=== PATIENT | female | born 1950 | race Caucasian/White ===

== ENCOUNTER 2018-06-10 12:30 | Outpatient (CLI) | payer OTHER ==
--- NOTE | 2018-06-23 16:05 | Mammography Report ---
Reason: SCREENING Procedure Date: 06/10/2018 Accession Number: [id number] / [id number] Procedure: MGN - Screening Mammo Dig Bilat CPT Code: FULL RESULT: EXAM: Screening Mammo Dig Bilat DATE: 06/10/2018 1:19 PM CLINICAL HISTORY: 67-year-old female presents for screening mammography. TECHNIQUE: Bilateral CC and MLO views were obtained. COMPARISON: No images for comparison available at the time of interpretation. FINDINGS: The breasts demonstrate heterogeneously dense fibroglandular parenchyma bilaterally. Typically benign coarse calcifications are seen in the right breast. There are typically benign vascular calcifications in both breasts. No suspicious masses, clustered microcalcifications, or regions of architectural distortion are identified. IMPRESSION: Benign findings RECOMMENDATION: Routine annual screening unless otherwise clinically indicated. BIRADS CATEGORY 2: Benign findings STANDARD QUALIFYING STATEMENTS: 1. This examination was reviewed without the aid of Computer-Aided Detection (CAD). 2. A negative or benign imaging report should not delay biopsy if clinically suspicious findings are present. Consider surgical consultation if warrented. More than 5% of cancers are not identified by imaging. 3. Dense breasts may obscure an underlying neoplasm.
== END 2018-06-10 12:31 | disposition home or self-care (01) ==
LOC: DI.N 12:30
DX: Z12.31 Encounter for screening mammogram for malignant neoplasm of breast (principal)
CPT/HCPCS: 77067

== ENCOUNTER 2019-01-12 14:38 | Outpatient (CLI) | payer OTHER ==
--- NOTE | 2019-01-12 15:58 | XRAY Report ---
Reason: PULMONARY ARTERY ANOLAMY,ELEV BP READING W/O HTN D Procedure Date: 01/12/2019 Accession Number: [id number] / [id number] Procedure: XR - Chest 2 View X-Ray CPT Code: 64784 FULL RESULT: EXAM: CHEST RADIOGRAPHY. EXAM DATE: 01/12/2019 03:05 PM. 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 COMPARISON: None. TECHNIQUE: 2 views. FINDINGS: Lungs/Pleura: No focal opacities evident. No pleural effusion. No pneumothorax. Normal volumes. Mediastinum: Heart and mediastinal contours are unremarkable. Other: None. IMPRESSION: Normal 2-view chest radiography. RADIA
== END 2019-01-12 14:39 | disposition home or self-care (01) ==
LOC: DI 14:38
PROVIDERS: ATTEND Family Medicine
DX: Q25.79 Other congenital malformations of pulmonary artery (principal); R03.0 Elevated blood-pressure reading, without diagnosis of hypertension
CPT/HCPCS: 71046

== ENCOUNTER 2019-01-13 07:39 | Outpatient (CLI) | payer OTHER ==
[2019-01-13 08:02] LABS: BASOPHILS % (AUTO) 0.5 %; EOSINOPHILS # (AUTO) 0.2 10^3/uL (0.0-0.7); EOSINOPHILS % (AUTO) 3.1 %; HGB - HEMOGLOBIN 14.2 g/dL (12.0-16.0); LYMPHOCYTES # (AUTO) 1.9 10^3/uL (1.5-3.5); LYMPHOCYTES % (AUTO) 38.5 %; MEAN CORPUSCULAR HEMOGLOBIN 30.5 pg (27.0-31.0); MEAN CORPUSCULAR HGB CONC 33.2 g/dL (32.0-36.0); MEAN CORPUSCULAR VOLUME 91.9 fL (81.0-99.0); MEAN PLATELET VOLUME 7.7 fL (7.9-10.8); MONOCYTES # (AUTO) 0.3 10^3/uL (0.0-1.0); MONOCYTES % (AUTO) 5.3 %; NEUTROPHILS # (AUTO) 2.7 10^3/uL (1.5-6.6); NEUTROPHILS % (AUTO) 52.6 %; PLT - PLATELET COUNT 244 10^3/uL (130-450); RED BLOOD COUNT 4.64 10^6/uL (4.20-5.40); RED CELL DISTRIBUTION WIDTH 13.2 % (12.0-15.0)
[2019-01-13 08:05] LABS: ALBUMIN/GLOBULIN RATIO 1.5 (1.0-2.2); CALCIUM 9.7 mg/dL (8.5-10.3); CREATININE 0.5 mg/dL (0.4-1.0); TOTAL PROTEIN 6.7 g/dL (6.7-8.2)
[2019-01-13 09:45] LABS: THYROID STIMULATING HORMONE 6.72 uIU/mL (0.34-5.60)
[2019-01-13 09:46] LABS: FREE T4 (FREE THYROXINE) 0.68 ng/dL (0.58-1.64)
== END 2019-01-13 07:40 | disposition home or self-care (01) ==
LOC: LAB 07:39
PROVIDERS: ATTEND Family Medicine
DX: Q25.79 Other congenital malformations of pulmonary artery (principal); R03.0 Elevated blood-pressure reading, without diagnosis of hypertension
CPT/HCPCS: 36415; 80053; 84439; 84443; 84481; 85025

== ENCOUNTER 2019-01-16 11:07 | Outpatient (CLI) | payer OTHER | END 2019-01-16 11:08 | disposition home or self-care (01) | LOC: DI 11:07 | PROVIDERS: ATTEND Family Medicine | DX: R03.0 Elevated blood-pressure reading, without diagnosis of hypertension (principal) | CPT/HCPCS: 93306 ==

== ENCOUNTER 2019-08-07 15:37 | Outpatient (CLI) | payer OTHER ==
[2019-08-07 16:56] LABS: THYROID STIMULATING HORMONE 2.38 uIU/mL (0.34-5.60)
[2019-08-07 16:57] LABS: FREE T4 (FREE THYROXINE) 0.69 ng/dL (0.58-1.64)
== END 2019-08-07 15:38 | disposition home or self-care (01) ==
LOC: LAB 15:37
PROVIDERS: ATTEND Family Medicine
DX: Z51.81 Encounter for therapeutic drug level monitoring (principal); Z79.899 Other long term (current) drug therapy; E03.9 Hypothyroidism, unspecified
CPT/HCPCS: 36415; 84439; 84443; 84481

== ENCOUNTER 2019-12-17 09:30 | Outpatient (CLI) | payer BC, OTHER | END 2019-12-17 23:59 | disposition home or self-care (01) | LOC: LAB.R 09:30 | PROVIDERS: ATTEND Family Medicine | DX: R06.02 Shortness of breath (principal); R50.9 Fever, unspecified; R05 Cough | CPT/HCPCS: 81599 ==

== ENCOUNTER 2020-04-26 12:41 | Outpatient (CLI) | payer BC ==
--- NOTE | 2020-04-29 09:06 | Mammography Report ---
Reason: ROUTINE MAMMO Procedure Date: 04/26/2020 Accession Number: [id number] / [id number] Procedure: MGN - Screening Mammo w/Miguelangel CPT Code: Final Report FULL RESULT: BILATERAL DIGITAL SCREENING MAMMOGRAM 3D/2D: 04/26/2020 CLINICAL: Routine screening. Comparison is made to exam dated: 06/10/2018 mammogram - [facility]. The tissue of both breasts is heterogeneously dense. This may lower the sensitivity of mammography. No significant masses, calcifications, or other findings are seen in either breast. There has been no significant interval change. IMPRESSION: NEGATIVE There is no mammographic evidence of malignancy. A 1 year screening mammogram is recommended. This exam was interpreted at Station ID: [id number]. NOTE: For mammograms, a report in lay terms will be sent to the patient. Approximately 15% of breast malignancies will not be visualized mammographically. In the management of a palpable breast mass, a negative mammogram must not discourage biopsy of a clinically suspicious lesion. Electronically Signed By: Garfield stoner/lucio:04/28/2020 17:39:46 ACR BI-RADS Category 1: Negative 3341F C -Heterogeneously dense 1 Mammogram [id number] 1 year screening B
== END 2020-04-26 12:42 | disposition home or self-care (01) ==
LOC: DI.N 12:41
DX: Z12.31 Encounter for screening mammogram for malignant neoplasm of breast (principal)
CPT/HCPCS: 77063; 77067

== ENCOUNTER 2020-05-02 09:51 | Outpatient (CLI) | payer BC ==
--- NOTE | 2020-05-02 11:11 | DEXA Report ---
Reason: POSTMENOPAUSAL Procedure Date: 05/02/2020 Accession Number: [id number] / [id number] Procedure: DEX - Dexa Spine and/or Hip CPT Code: Final Report FULL RESULT: PROCEDURE: Dexa Spine and/or Hip INDICATIONS: POSTMENOPAUSAL TECHNIQUE: Dual energy x-ray absorptiometry (DXA) was performed on a [employer] System. Regions measured are the AP Spine, femoral neck, and if needed forearm. COMPARISON: None. FINDINGS: Lumbar Spine: Bone Mineral Density 1.108 g/cm/cm,T score -0.6, normal Left Hip: Bone Mineral Density 0.851 g/cm/cm,T score -1.2, osteopenia Left Femoral Neck: Bone Mineral Density 0.808 g/cm/cm, T score -1.7, osteopenia (T score greater or equal to -1.0: NORMAL) (T score from -1.1 to -2.4: OSTEOPENIA) (T score less than or equal to -2.5 to: OSTEOPOROSIS) Impression: Osteopenia Patients with diagnosis of osteoporosis or osteopenia should have regular bone mineral density assessment. For those eligible for Medicare, routine testing is allowed once every 2 years. Testing frequency can be increased for patients who have rapidly progressing disease or for those who are receiving medical therapy to restore bone mass. Reviewed by: Joseph Bird MD on 05/02/2020 11:09 AM PDT Approved by: Joseph Bird MD on 05/02/2020 11:09 AM PDT Station ID: [id number]
== END 2020-05-02 09:52 | disposition home or self-care (01) ==
LOC: DI 09:51
PROVIDERS: ATTEND Family Medicine
DX: M85.89 Other specified disorders of bone density and structure, multiple sites (principal); Z78.0 Asymptomatic menopausal state
CPT/HCPCS: 77080

== ENCOUNTER 2020-06-03 13:23 | Outpatient (CLI) | payer BC ==
[2020-06-03 14:25] LABS: THYROID STIMULATING HORMONE 1.34 uIU/mL (0.34-5.60)
[2020-06-03 14:26] LABS: FREE T3 3.74 pg/mL (2.5-3.9)
[2020-06-03 14:27] LABS: FREE T4 (FREE THYROXINE) 0.77 ng/dL (0.58-1.64)
== END 2020-06-03 13:24 | disposition home or self-care (01) ==
LOC: LAB 13:23
PROVIDERS: ATTEND Naturopath
DX: E03.9 Hypothyroidism, unspecified (principal); Z79.890 Hormone replacement therapy
CPT/HCPCS: 36415; 81599; 82627; 84402; 84403; 84439; 84443; 84481

== ENCOUNTER 2020-07-28 13:36 | Outpatient (CLI) | payer MEDICARE, OTHER | END 2020-07-28 13:37 | disposition home or self-care (01) | LOC: LAB 13:36 | PROVIDERS: ATTEND Naturopath | DX: E28.1 Androgen excess (principal); Z79.890 Hormone replacement therapy | CPT/HCPCS: 36415; 81599; 82627; 84402; 84403 ==

== ENCOUNTER 2021-02-01 17:59 | Emergency (ER) | payer MEDICARE, OTHER ==
--- OUTSIDE RECORDS SUMMARY | 2021-02-01 18:31 | EXTERNAL MEDICAL SUMMARY RPT | Continuity of Care Document ---
:1950 Demographics Phone Unavailable Preferred Language Unknown Marital Status Unknown Spiritism Affiliation Unknown Race Unknown Ethnic Group Unknown Author Organization [facility] Address [address] [place] [address] Phone Social History date description facility [id number]
[2021-02-01] MEDS ORDERED: diphenhydrAMINE 25 MG CAPSULE PO STA (18:42)
--- NOTE | 2021-02-01 18:46 | ED Physician Documentation ---
History of Present Illness - Stated complaint Stated Complaint: VACCINE REACTION - Chief complaint Chief Complaint: Allergic Rx - Additonal information Additional information: 70-year-old female presents the emergency department for evaluation of perioral tingling burning and sensation that she is having difficulty swallowing. She reports that she received her second COVID-19 vaccine this afternoon about 130. About 5 AM she felt like her lips and tongue were burning and tingling and she had a globus sensation. She denies chest pain or shortness of air. No dysphonia tongue or lip swelling. She does report a history of previous anaphylaxis with allergy testing about 20 years ago. However she has never had any allergy reactions to immunizations in the past. Review of Systems Constitutional: denies: Fever, Chills Eyes: reports: Reviewed and negative Ears: reports: Reviewed and negative Nose: reports: Reviewed and negative Throat: reports: Other (perioral tingling, difficulty swallowing) Cardiac: reports: Reviewed and negative Respiratory: reports: Reviewed and negative GI: reports: Reviewed and negative : reports: Reviewed and negative PD PAST MEDICAL HISTORY - Past Medical History Past Medical History: Yes Cardiovascular: None Respiratory: None Neuro: None Endocrine/Autoimmune: HyPOthyroidism GI: None ICU TECH: None : None HEENT: None Psych: None Musculoskeletal: None Derm: None - Past Surgical History Past Surgical History: Yes /ICU TECH: Hysterectomy - Present Medications Home Medications: Ambulatory Orders Medication Instructions Recorded Confirmed Thyroid,Pork [Horicon Thyroid] 60 mg ORAL DAILY 02/01/21 02/01/21 - Allergies Allergies/Adverse Reactions: Allergies Allergy/AdvReac Type Severity Reaction Status Date / Time No Known Drug Allergies Allergy Verified 02/01/21 18:14 - Social History Does the pt smoke?: No Smoking Status: Never smoker Does the pt drink ETOH?: No Does the pt have substance abuse?: No - Immunizations Immunizations are current?: Yes PD ED PE NORMAL - General General: Alert and oriented X 3 - HEENT HEENT: Atraumatic, PERRL, Moist mucous membranes, Pharynx benign - Neck Neck: Supple, no meningeal sign, No adenopathy, Thyroid normal, No JVD - Cardiac Cardiac: RRR, No murmur, Strong equal pulses - Respiratory Respiratory: No respiratory distress, Clear bilaterally - Abdomen Abdomen: Normal bowel sounds, Soft, Non tender - Back Back: No CVA TTP - Extremities Extremities: No deformity, No tenderness to palpate - Neuro Neuro: Alert and oriented X 3, cork compounder 2-12 intact, No motor deficit, No sensory deficit, Other (NIHSS 0) Eye Opening: Spontaneous Motor: Obeys Commands Verbal: Oriented GCS Score: 15 Results - Vitals Vitals: Vital Signs - 24 hr 02/01/21 02/01/21 02/01/21 18:10 18:34 19:47 Temperature 36.9 C 36.6 C 36.5 C Heart Rate 69 70 62 Respiratory 16 18 16 Rate Blood Pressure 166/65 H 153/73 H 146/75 H O2 Saturation 99 100 100 Oxygen O2 Source Room air PD MEDICAL DECISION MAKING - ED course Complexity details: re-evaluated patient, d/w patient ED course: 70-year-old female presents emergency department for evaluation of perioral tingling and a sensation that she is having difficulty swallowing after she r eceived her second COVID-19 vaccine about 130 this afternoon. On exam she is bright well-appearing has no dysphonia difficulty breathing or dyspnea. Vital signs are unremarkable for age. I suspect that the perioral tingling may be related to the COVID-19 vaccine but she has no signs of airway injury or occlusion. Patient will be given 25 mg of Benadryl and observed here in the emergency department. 2000: After being observed in the emergency department for about 90 minutes patient reports that the perioral tingling is beginning to resolve. She no longer has difficulty swallowing. At this point she feels stable for discharge home. I do recommend that she take Pepcid and Benadryl once or twice a day for the next 2 to 3 days. Return precautions for worsening symptoms discussed. Departure - Departure Disposition: 01 Home, Self Care Clinical Impression: Vaccine reaction Qualifiers: Encounter type: initial encounter Qualified Code(s): T50.Z95A - Adverse effect of other vaccines and biological substances, initial encounter Condition: Stable Record reviewed to determine appropriate education?: Yes Follow-Up: QUENTIN REED ND [Primary Care Provider] - Comments: Reny you were seen in the emergency department for burning in your mouth, tingling around your mouth and difficulty swallowing after your second COVID-19 vaccine. You were given 25 mg of Benadryl here in the emergency department and observed. You have reported that your symptoms have begun to improve. I do recommend that you take Pepcid or Benadryl once or twice a day for the next 2 to 3 days. If at any point you feel that you have tongue or lip swelling, shortness of breath, high-pitched voice, cannot swallow or tolerate your oral secretions please return immediately to the emergency department.
[2021-02-01 20:06] VITALS: BP 146/69
== END 2021-02-01 20:05 | disposition home or self-care (01) ==
LOC: ED 17:59
DX: R13.10 Dysphagia, unspecified (principal); T50.Z95A Adverse effect of other vaccines and biological substances, initial encounter
CPT/HCPCS: 99282; 99284; A9270

== ENCOUNTER 2021-05-26 15:38 | Outpatient (CLI) | payer MEDICARE, OTHER ==
--- NOTE | 2021-05-26 17:15 | XRAY Report ---
PROCEDURE: Chest 2 View X-Ray INDICATIONS: COUGH,SHORTNESS OF BREATH TECHNIQUE: 2 view(s) of the chest. COMPARISON: None. FINDINGS: Surgical changes and devices: None. Lungs and pleura: No pleural effusions or pneumothorax. Lungs are clear. Mediastinum: Mediastinal contours are normal. Heart size is normal. Bones and chest wall: No suspicious bony abnormalities. Soft tissues appear unremarkable. IMPRESSION: No acute cardiopulmonary disease. Reviewed by: KARLO Clark on 05/26/2021 5:14 PM PDT Approved by: Adrian Delacruz MD on 05/26/2021 5:14 PM PDT Station ID: [id number]
== END 2021-05-26 15:39 | disposition home or self-care (01) ==
LOC: DI 15:38
PROVIDERS: ATTEND Physician Assistant
DX: R06.02 Shortness of breath (principal); R05 Cough

== ENCOUNTER 2021-05-29 15:43 | Outpatient (CLI) | payer MEDICARE, OTHER | END 2021-05-29 15:44 | disposition home or self-care (01) | LOC: COV 15:43 | PROVIDERS: ATTEND Family Medicine | DX: R05 Cough (principal); R06.02 Shortness of breath; R09.81 Nasal congestion; J34.89 Other specified disorders of nose and nasal sinuses; Z20.822 Contact with and (suspected) exposure to COVID-19 ==

== ENCOUNTER 2021-06-06 12:26 | Outpatient (CLI) | payer MEDICARE, OTHER ==
[2021-06-06 12:37] LABS: BASOPHILS % (AUTO) 0.4 %; EOSINOPHILS # (AUTO) 0.1 10^3/uL (0.0-0.7); EOSINOPHILS % (AUTO) 1.7 %; HCT - HEMATOCRIT 43.7 % (37.0-47.0); HGB - HEMOGLOBIN 14.2 g/dL (12.0-16.0); LYMPHOCYTES # (AUTO) 1.9 10^3/uL (1.5-3.5); LYMPHOCYTES % (AUTO) 23.8 %; MEAN CORPUSCULAR HEMOGLOBIN 30.9 pg (27.0-31.0); MEAN CORPUSCULAR HGB CONC 32.5 g/dL (32.0-36.0); MEAN CORPUSCULAR VOLUME 95.2 fL (81.0-99.0); MEAN PLATELET VOLUME 10.1 fL (7.9-10.8); MONOCYTES # (AUTO) 0.4 10^3/uL (0.0-1.0); MONOCYTES % (AUTO) 4.9 %; NEUTROPHILS # (AUTO) 5.4 10^3/uL (1.5-6.6); NEUTROPHILS % (AUTO) 69.1 %; PLT - PLATELET COUNT 261 10^3/uL (130-450); RED BLOOD COUNT 4.59 10^6/uL (4.20-5.40); RED CELL DISTRIBUTION WIDTH 12.5 % (12.0-15.0); WHITE BLOOD COUNT 7.8 x10^3/uL (4.8-10.8)
[2021-06-06 12:57] LABS: ALBUMIN 4.3 g/dL (3.2-5.5); ALBUMIN/GLOBULIN RATIO 1.5 (1.0-2.2); ALKALINE PHOSPHATASE 47 IU/L (42-121); ALT ALANINE AMINOTRANSFERASE 16 IU/L (10-60); AST ASPARTATE AMINOTRANSFERASE 19 IU/L (10-42); BILIRUBIN,TOTAL 0.8 mg/dL (0.2-1.0); BUN - BLOOD UREA NITROGEN 18 mg/dL (6-20); CALCIUM 10.2 mg/dL (8.5-10.3); CARBON DIOXIDE - CO2 25 mmol/L (21-32); CHLORIDE 105 mmol/L (101-111); CHOL/HDL RATIO 2.6 (<4.4); CHOLESTEROL 193 mg/dL; CREATININE 0.7 mg/dL (0.4-1.0); GFR - MDRD 83 (>89); GLUCOSE 102 mg/dL (70-100); HDL CHOLESTEROL 74 mg/dL; POTASSIUM 4.6 mmol/L (3.5-5.0); SODIUM 138 mmol/L (135-145); TOTAL PROTEIN 7.2 g/dL (6.7-8.2); TRIGLYCERIDES 31 mg/dL
== END 2021-06-06 12:27 | disposition home or self-care (01) ==
LOC: LAB 12:26
PROVIDERS: ATTEND Physician Assistant
DX: Z00.01 Encounter for general adult medical examination with abnormal findings (principal); R05 Cough; Z79.899 Other long term (current) drug therapy; Z13.6 Encounter for screening for cardiovascular disorders
CPT/HCPCS: 36415; 80053; 80061; 83721; 85025

== ENCOUNTER 2021-06-16 07:42 | Outpatient (CLI) | payer MEDICARE, OTHER ==
[2021-06-16 08:32] LABS: THYROID STIMULATING HORMONE 2.29 uIU/mL (0.34-5.60)
[2021-06-16 08:34] LABS: FREE T3 3.47 pg/mL (2.5-3.9); FREE T4 (FREE THYROXINE) 0.79 ng/dL (0.58-1.64)
[2021-06-17 03:55] LABS: ESTRADIOL 61 pg/mL
[2021-06-19 14:21] LABS: DHEA SULFATE 69 mcg/dL (12-133)
[2021-06-20 20:25] LABS: FREE TESTOSTERONE 0.7 pg/mL (0.2-3.7)
== END 2021-06-16 07:43 | disposition home or self-care (01) ==
LOC: LAB 07:42
PROVIDERS: ATTEND Physician Assistant
DX: E03.9 Hypothyroidism, unspecified (principal); Z79.890 Hormone replacement therapy
CPT/HCPCS: 36415; 82627; 82670; 84270; 84402; 84403; 84439; 84443; 84481

== ENCOUNTER 2021-09-27 09:51 | Outpatient (CLI) | payer MEDICARE, OTHER ==
[2021-09-27 11:15] LABS: THYROID STIMULATING HORMONE 0.17 uIU/mL (0.34-5.60)
[2021-09-27 11:16] LABS: FREE T3 2.43 pg/mL (2.5-3.9)
[2021-09-27 11:17] LABS: FREE T4 (FREE THYROXINE) 0.73 ng/dL (0.58-1.64)
== END 2021-09-27 09:52 | disposition home or self-care (01) ==
LOC: LAB 09:51
PROVIDERS: ATTEND Naturopath
DX: E03.9 Hypothyroidism, unspecified (principal)
CPT/HCPCS: 36415; 84439; 84443; 84481

== ENCOUNTER 2021-12-01 09:52 | Outpatient (CLI) | payer MEDICARE, OTHER ==
[2021-12-01 11:01] LABS: THYROID STIMULATING HORMONE < 0.08 uIU/mL (0.34-5.60)
[2021-12-01 11:02] LABS: FREE T3 3.62 pg/mL (2.5-3.9)
[2021-12-01 11:03] LABS: FREE T4 (FREE THYROXINE) 0.54 ng/dL (0.58-1.64)
[2021-12-02 03:56] LABS: PROGESTERONE 32.2 ng/mL
== END 2021-12-01 09:53 | disposition home or self-care (01) ==
LOC: LAB 09:52
PROVIDERS: ATTEND Naturopath
DX: E03.9 Hypothyroidism, unspecified (principal); Z79.890 Hormone replacement therapy
CPT/HCPCS: 36415; 82670; 84144; 84439; 84443; 84481

== ENCOUNTER 2022-01-09 06:38 | Outpatient (CLI) | payer MEDICARE, OTHER ==
--- NOTE | 2022-01-09 08:38 | Ultrasound Report ---
PROCEDURE: Retroperitoneal Limited INDICATIONS: ENLARGED AORTA TECHNIQUE: Real time scanning was performed of the aorta and iliac arteries, with image documentatio n. COMPARISON: None. FINDINGS: Aorta: Proximal aortic diameter measures 2.6 x 2.6 cm. Mid-aorta measures 1.9 x 2.1 cm. Distal aor tic diameter is 1.6 x 1.9 cm. A small amount of plaque in the distal abdominal aorta. Iliac arteries: Right common iliac artery measures 1.2 x 1.2 cm. Left common iliac artery measures 1.1 x 1.1 cm. IMPRESSION: 1. No sonographic evidence of abdominal aortic aneurysm. Reviewed by: Torsten Guerrero MD on 01/09/2022 8:37 AM PDT Approved by: Torsten Guerrero MD on 01/09/2022 8:37 AM PDT Station ID: [id number]
== END 2022-01-09 06:39 | disposition home or self-care (01) ==
LOC: DI 06:38
PROVIDERS: ATTEND Internal Medicine
DX: R09.89 Other specified symptoms and signs involving the circulatory and respiratory systems (principal)

== ENCOUNTER 2022-02-05 14:13 | Outpatient (CLI) | payer MEDICARE, OTHER ==
[2022-02-05] MEDS ORDERED: IOVERSOL 320 50 ML VIAL ONE (14:31)
[2022-02-05] MEDS ORDERED: IOPAMIDOL-300 100 ML VIAL ONE (14:31)
[2022-02-05 15:04] LABS: CREATININE 0.8 mg/dL (0.4-1.0)
[2022-02-05] MEDS ORDERED: IOVERSOL 320 50 ML VIAL PO ONE (16:01)
[2022-02-05] MEDS ORDERED: IOPAMIDOL-300 100 ML VIAL IVP ONE (16:01)
--- NOTE | 2022-02-06 09:02 | CT Report ---
PROCEDURE: Abdomen/Pelvis W INDICATIONS: UNINTENTIONAL WEIGHT LOSS, ABD PAIN CONTRAST: IV CONTRAST: Isovue 300 ml: 100 PO CONTRAST: Optiray 320 ml50 TECHNIQUE: After the administration of oral and intravenous contrast, 5 mm thick sections acquired from the diap hragms to the symphysis. 5 mm thick coronal and sagittal reformats were acquired. For radiation dos e reduction, the following was used: automated exposure control, adjustment of mA and/or kV accordin g to patient size. COMPARISON: None. FINDINGS: Image quality: Excellent. ABDOMEN: Lung bases: There is a 7 mm nodule in the right lower lobe (series 4 image 1), partially visualized. Left basilar atelectasis. Heart size is normal. Solid organs: A couple of hypodense nodules are noted in the left hepatic lobe near the hepatic dome , measuring 7 mm and 5 mm, most likely hepatic cysts. Mild hepatic steatosis. Liver and spleen are no rmal in size and enhancement. Gallbladder is normal. Biliary system is non dilated. Pancreas enhan dena normally. No adrenal nodules. Kidneys demonstrate normal size and enhancement, without hydronep hrosis. There is a 1.5 cm exophytic low-density nodule in the superior pole of the left kidney, most likely a cyst. Peritoneum and bowel: Bowel loops demonstrate normal wall thickness and caliber. There is a moderat e amount of stool in colon. No free fluid or air. Nodes and vessels: No retroperitoneal or mesenteric adenopathy by size criteria. Aorta and inferior vena cava are normal in size. Miscellaneous: No ventral hernias. PELVIS: Genitourinary: Uterus is absent. Ovaries are not visualized. Bladder wall thickness is normal. Miscellaneous: No inguinal hernias or adenopathy. Bones: Scoliosis. Degenerative changes in lumbar spine. No suspicious bony lesions. No vertebral rodri dy compression fractures. IMPRESSION: 1. No acute abnormalities in abdomen or pelvis. 2. Hepatic and left renal cysts. 3. Partial visualization of ovary 7 mm nodule in the right lower lobe. Recommend a chest CT for follo w-up. Reviewed by: Nancy Pearce MD on 02/06/2022 9:00 AM PDT Approved by: Nancy Pearce MD on 02/06/2022 9:00 AM PDT Station ID: [id number]
== END 2022-02-05 14:14 | disposition home or self-care (01) ==
LOC: LAB 14:13
PROVIDERS: ATTEND Internal Medicine
DX: R63.4 Abnormal weight loss (principal); R10.33 Periumbilical pain; R14.0 Abdominal distension (gaseous); K76.89 Other specified diseases of liver; N28.1 Cyst of kidney, acquired; R91.1 Solitary pulmonary nodule
CPT/HCPCS: 36415; 74177; 82565; Q9967

== ENCOUNTER 2022-02-10 08:26 | Outpatient (CLI) | payer MEDICARE, OTHER ==
[2022-02-10] MEDS ORDERED: IOPAMIDOL-300 100 ML VIAL ONE (08:39)
[2022-02-10] MEDS ORDERED: IOPAMIDOL-300 100 ML VIAL IVP ONE (09:17)
--- NOTE | 2022-02-10 09:36 | CT Report ---
PROCEDURE: CHEST W INDICATIONS: LUNG NODULE CONTRAST: IV CONTRAST: Isovue 300 ml: 100 PO CONTRAST: *NO PO CONTRAST TECHNIQUE: After the administration of intravenous contrast, 1 mm axial images were acquired from the pulmonary apices through the posterior costophrenic angles. Axial 5 mm soft tissue kernel reconstructions were performed as well as 8 mm axial MIP and coronal and sagittal 5 mm reformations. For radiation dose reduction, the following was used: automated exposure control, adjustment of mA and/or kV according to patient size. COMPARISON: CT abdomen pelvis with, 02/05/2022. FINDINGS: Image quality: Excellent. Lungs and pleura: There are couple of lung nodules in the right lower lobe. Nodule 1: 7 mm; right lower lobe; series 4 image 174; subsolid and spiculated. Nodule 2: 3 mm; right lower lobe; series 4 image 174; solid. No acute air space opacities. No pleural effusions or pneumothorax. Central and peripheral airways are patent and normal in caliber. Mediastinum: Heart size is normal. No pericardial effusion. No mediastinal or hilar adenopathy by size criteria. Thoracic aorta and central pulmonary arteries are normal in size. Esophagus is geneva l in caliber. No hiatal hernia. Bones and chest wall: No suspicious bony lesions. No vertebral body compression fractures. No axil lisa or supraclavicular adenopathy by size criteria. The thyroid is normal in size and there are no incidental findings.. Abdomen: There is a 1.3 cm peripherally enhancing nodule in the posterior segment of right hepatic lo be (series 3 image 52), which was not visualized on the comparison abdominal CT, likely due to differ ent timing of contrast enhancement. The nodule is most likely a hepatic hemangioma. A couple of cyst s are noted in the left hepatic lobe. IMPRESSION: 1. 2 lung nodules are present in right lower lobe. Recommend a short-term follow-up CT in 3 months. 2. A 1.3 cm peripherally enhancing nodule in the posterior segment of right hepatic lobe, not visuali zed on the comparison CT dated 02/05/2022. It is most likely a hepatic hemangioma. Recommend abdomina l ultrasound for follow-up. Fleischner Society criteria for SOLID lung nodule followup. Nodule size (mm)Low-risk patientHigh-risk patient "d4No follow-up neededFollow-up at 12 mo; if no change, no further follow-up >[id number] CT at 12 mo; if no change, no further follow-up needed.Initial follow-up CT at 6-12 mo, then 18-24 mo if no change. >6-8Initial follow-up CT at 6-12 mo, then 18-24 mo if no change. Initial follow-up CT at 3-6 mo, then 9-12 mo and 24 mo if no change. >8Follow-up CT at 3, 9, 24 mo. Or PET and/or biopsy.Same as for low-risk pts. Fleischner Society criteria for SUB-SOLID lung nodule followup. Solitary pure ground-glass nodules 5 mm or lessNo followup needed. >5 mm3 mo follow-up CT to confirm persistence. Then annual CT for 3 years. Part-solid nodules3 mo follow-up CT to confirm persistence. If persistent with solid component <5 mm , annual CT for at least 3 years. If solid component is 5 mm or more, biopsy or surgical resection. Consider PET-CT for lesions > 10 mm. Multiple sub-solid nodules Pure ground glass nodules [address] at 2 and 4 years. Pure ground glass nodules >5 mm without dominant lesion. [address] to confirm persistence, then annual followup CT for at least 3 years. Dominant nodule(s) with part-solid or solid component. [address] to confirm persistence. If persistent, consider biopsy or surgical resection, danish if lesions have >5 mm solid component. Reviewed by: Nancy Pearce MD on 02/10/2022 8:34 AM INOCENCIA Approved by: Nancy Pearce MD on 02/10/2022 8:34 AM INOCENCIA Station ID: [id number]
== END 2022-02-10 08:27 | disposition home or self-care (01) ==
LOC: DI 08:26
PROVIDERS: ATTEND Internal Medicine
DX: R91.8 Other nonspecific abnormal finding of lung field (principal); R16.0 Hepatomegaly, not elsewhere classified
CPT/HCPCS: 71260; Q9967

== ENCOUNTER 2022-07-10 14:09 | Outpatient (CLI) | payer MEDICARE, OTHER ==
[2022-07-10] MEDS ORDERED: iohexoL-300 100 ML VIAL ONE (14:38)
[2022-07-10] MEDS ORDERED: iohexoL-300 100 ML VIAL IVP ONE (18:25)
--- NOTE | 2022-07-11 10:52 | CT Report ---
PROCEDURE: CHEST W INDICATIONS: PULMONARY NODULES, POSTMENOPAUSAL CONTRAST: IV CONTRAST: Optiray 320 ml: 100 PO CONTRAST: *NO PO CONTRAST TECHNIQUE: After the administration of intravenous contrast, 1 mm axial images were acquired from the pulmonary apices through the posterior costophrenic angles. Axial 5 mm soft tissue kernel reconstructions were performed as well as 8 mm axial MIP and coronal and sagittal 5 mm reformations. For radiation dose reduction, the following was used: automated exposure control, adjustment of mA and/or kV according to patient size. COMPARISON: CT chest 02/10/2022 FINDINGS: Image quality: Excellent. Lungs and pleura: A 7 x 4 mm subsolid nodule in the right lower lobe (189/4) appears unchanged when compared to the CT from 02/10/2022. Additional 3 mm solid subpleural nodule in the right lower lobe (18 9/4) also appears unchanged. No acute air space opacities. No pleural effusions or pneumothorax. Ce ntral and peripheral airways are patent and normal in caliber. Mediastinum: Heart size is normal. No pericardial effusion. No mediastinal or hilar adenopathy by size criteria. Thoracic aorta and central pulmonary arteries are normal in size. Esophagus is geneva l in caliber. No hiatal hernia. Bones and chest wall: No suspicious bony lesions. No vertebral body compression fractures. No axil lisa or supraclavicular adenopathy by size criteria. The thyroid is normal in size. Abdomen: Enhancing lesion in hepatic segment 7 that does not appear significant changed given differences in t iming of the contrast bolus. Visualized upper abdominal solid organs otherwise appear normal. Upper abdominal bowel loops are normal in caliber. IMPRESSION: 1.Stable right lower lobe pulmonary nodules. The larger subsolid nodule measures 5 mm in average diam eter and does not require dedicated imaging follow-up based on Fleischner Society guidelines. 2.Stable peripherally enhancing lesion in the right hepatic lobe is again most likely a benign marianela ioma. Consider follow-up ultrasound. Reviewed by: Mynor Hagen MD on 07/11/2022 10:50 AM PDT Approved by: Mynor Hagen MD on 07/11/2022 10:50 AM PDT Station ID: [id number]
--- NOTE | 2022-07-11 11:39 | DEXA Report ---
PROCEDURE: Dexa Spine and/or Hip INDICATIONS: PULMONARY NODULES, POSTMENOPAUSAL TECHNIQUE: Dual energy x-ray absorptiometry (DXA) was performed on a [employer] System. Regions measur ed are the AP Spine, femoral neck, and if needed forearm. COMPARISON: None. FINDINGS: Lumbar Spine: Bone Mineral Density 1.078 g/cm/cm,T score -0.9, normal Left Hip: Bone Mineral Density 0.826 g/cm/cm,T score -1.4, osteopenia Left Femoral Neck: Bone Mineral Density 0.777 g/cm/cm, T score -1.9, osteopenia IMPRESSION: Osteopenia. Patients with diagnosis of osteoporosis or osteopenia should have regular bone mineral density assess ment. For those eligible for Medicare, routine testing is allowed once every 2 years. Testing frequ ency can be increased for patients who have rapidly progressing disease or for those who are receivin g medical therapy to restore bone mass. Reviewed by: Joseph Bird MD on 07/11/2022 11:38 AM PDT Approved by: Joseph Bird MD on 07/11/2022 11:38 AM PDT Station ID: [id number]
== END 2022-07-10 14:10 | disposition home or self-care (01) ==
LOC: DI 14:09
PROVIDERS: ATTEND Internal Medicine
DX: Z13.820 Encounter for screening for osteoporosis (principal); M85.89 Other specified disorders of bone density and structure, multiple sites; R91.8 Other nonspecific abnormal finding of lung field; K76.9 Liver disease, unspecified; Z78.0 Asymptomatic menopausal state; Z79.899 Other long term (current) drug therapy
CPT/HCPCS: 71260; 77080; Q9967

== ENCOUNTER 2022-07-18 13:51 | Outpatient (CLI) | payer MEDICARE, OTHER ==
[2022-07-18 14:44] LABS: FREE T3 3.33 pg/mL (2.5-3.9)
[2022-07-18 14:46] LABS: FREE T4 (FREE THYROXINE) 0.78 ng/dL (0.58-1.64)
== END 2022-07-18 13:52 | disposition home or self-care (01) ==
LOC: LAB 13:51
PROVIDERS: ATTEND Internal Medicine
DX: E03.9 Hypothyroidism, unspecified (principal); K76.9 Liver disease, unspecified
CPT/HCPCS: 36415; 84439; 84481

== ENCOUNTER 2022-08-06 06:59 | Outpatient (CLI) | payer MEDICARE, OTHER ==
--- NOTE | 2022-08-06 09:12 | Ultrasound Report ---
PROCEDURE: Abdomen Limited INDICATIONS: LEISON OF LIVER TECHNIQUE: Real-time focused scanning was performed of the abdomen, with image documentation. COMPARISON: Chest CT 07/10/2022 FINDINGS: In the right hepatic lobe at the location of the peripherally enhancing hypodensity on CT scan (segment 7), there is a thin-walled unilocular cystic lesion measuring 1.1 x 0.9 x 0.9 cm. No vi sible peripheral or internal vascularity by color Doppler. The liver is otherwise normal in echotexture with other scattered thin-walled right lobe cysts. Liver margin is smooth. The gallbladder is normal without stones, sludge, wall thickening, or pericholecys tic fluid. No sonographic Yeh's sign per the technologist. The common duct is normal caliber measu ring between 6 and 7 mm. The visible portion of the pancreas, proximal abdominal aorta, retrohepatic IVC, and right kidney are normal. IMPRESSION: 1. 1.1 cm cystic lesion in segment 7 of the liver corresponding to the hypodensity seen previously on CT. 2. Other smaller cysts are present. No suspicious liver lesion. Reviewed by: Jeannette Jimenez MD on 08/06/2022 9:11 AM PDT Approved by: Jeannette Jimenez MD on 08/06/2022 9:11 AM PDT Station ID: [id number]
== END 2022-08-06 07:00 | disposition home or self-care (01) ==
LOC: DI 06:59
PROVIDERS: ATTEND Internal Medicine
DX: K76.89 Other specified diseases of liver (principal)

== ENCOUNTER 2023-05-21 12:04 | Outpatient (CLI) | payer MEDICARE, OTHER ==
[2023-05-21 12:45] LABS: THYROID STIMULATING HORMONE 0.45 uIU/mL (0.34-5.60)
== END 2023-05-21 12:05 | disposition home or self-care (01) ==
LOC: LAB 12:04
PROVIDERS: ATTEND Naturopath
DX: E03.9 Hypothyroidism, unspecified (principal); R53.83 Other fatigue
CPT/HCPCS: 36415; 84439; 84443; 84481

== ENCOUNTER 2023-09-13 08:35 | Outpatient (CLI) | payer MEDICARE, OTHER ==
[2023-09-13 08:53] LABS: BASOPHILS % (AUTO) 0.1 %; EOSINOPHILS # (AUTO) 0.3 10^3/uL (0.0-0.7); LYMPHOCYTES # (AUTO) 2.1 10^3/uL (1.5-3.5); MEAN CORPUSCULAR HEMOGLOBIN 31.2 pg (27.0-31.0); MEAN CORPUSCULAR HGB CONC 32.6 g/dL (32.0-36.0); MEAN CORPUSCULAR VOLUME 95.8 fL (81.0-99.0); MEAN PLATELET VOLUME 9.3 fL (7.9-10.8); MONOCYTES # (AUTO) 0.4 10^3/uL (0.0-1.0); MONOCYTES % (AUTO) 5.7 %; NEUTROPHILS # (AUTO) 4.6 10^3/uL (1.5-6.6); NEUTROPHILS % (AUTO) 62.1 %; PLT - PLATELET COUNT 274 10^3/uL (130-450); RED BLOOD COUNT 4.49 10^6/uL (4.20-5.40); RED CELL DISTRIBUTION WIDTH 11.9 % (12.0-15.0); WHITE BLOOD COUNT 7.4 x10^3/uL (4.8-10.8)
[2023-09-13 09:09] LABS: ALBUMIN 4.2 g/dL (3.2-5.5); ALBUMIN/GLOBULIN RATIO 1.8 (1.0-2.2); ALKALINE PHOSPHATASE 48 IU/L (42-121); ALT ALANINE AMINOTRANSFERASE 16 IU/L (10-60); AST ASPARTATE AMINOTRANSFERASE 18 IU/L (10-42); BILIRUBIN,TOTAL 1.1 mg/dL (0.2-1.0); BUN - BLOOD UREA NITROGEN 15 mg/dL (6-20); CALCIUM 9.9 mg/dL (8.5-10.3); CARBON DIOXIDE - CO2 25 mmol/L (21-32); CHLORIDE 107 mmol/L (101-111); CHOL/HDL RATIO 2.8 (<4.4); CHOLESTEROL 177 mg/dL; CREATININE 0.5 mg/dL (0.6-1.3); GFR - MDRD 121 (>89); GLUCOSE 95 mg/dL (74-104); HDL CHOLESTEROL 64 mg/dL; LDL CHOLESTEROL,CALCULATED 102 mg/dL; LDL/HDL RATIO 1.6 (<4.4); POTASSIUM 3.5 mmol/L (3.5-4.5); SODIUM 137 mmol/L (135-145); TOTAL PROTEIN 6.6 g/dL (6.4-8.9); TRIGLYCERIDES 54 mg/dL (48-352); VLDL CHOLESTEROL 11 mg/dL
[2023-09-13 09:11] LABS: BILIRUBIN,URINE NEGATIVE (NEGATIVE); GLUCOSE, URINE (UA) NEGATIVE (NEGATIVE); KETONES,URINE (UA) NEGATIVE (NEGATIVE); LEUKOCYTE ESTERASE, URINE NEGATIVE (NEGATIVE); NITRITE,URINE NEGATIVE (NEGATIVE); OCCULT BLOOD,URINE NEGATIVE (NEGATIVE); PROTEIN,URINE NEGATIVE (NEGATIVE); UROBILINOGEN,URINE 0.2 (NORMAL) E.U./dL (NORMAL)
[2023-09-13 09:12] LABS: CLARITY,URINE CLEAR (CLEAR)
[2023-09-13 09:23] LABS: THYROID STIMULATING HORMONE 0.45 uIU/mL (0.34-5.60)
[2023-09-13 09:39] LABS: RBC,URINE None Seen /HPF (0-5); SQUAMOUS EPITHELIAL CELL,UR MOD Squamous (<= Few); WBC,URINE 0-3 /HPF (0-5)
[2023-09-13 09:40] LABS: BACTERIA,URINE Few /HPF (None Seen)
[2023-09-14 07:09] LABS: DHEA-SULFATE 66.2 ug/dL (20.4-186.6); PROGESTERONE 4.9 ng/mL (.)
[2023-09-14 16:08] LABS: FREE TESTOSTERONE(DIRECT) 2.8 pg/mL (0.0-4.2); TESTOSTERONE 18 ng/dL (3-67)
[2023-09-17 16:08] LABS: TREPONEMA PALLIDUM ANTIBODIES Non Reactive (Non Reactive)
[2023-09-18 13:10] LABS: ESTROGENS TOTAL 575 pg/mL (40-244)
== END 2023-09-13 08:36 | disposition home or self-care (01) ==
LOC: LAB 08:35
PROVIDERS: ATTEND Internal Medicine
DX: Z00.00 Encounter for general adult medical examination without abnormal findings (principal); K21.9 Gastro-esophageal reflux disease without esophagitis; E03.9 Hypothyroidism, unspecified; R41.3 Other amnesia; R91.8 Other nonspecific abnormal finding of lung field; J45.909 Unspecified asthma, uncomplicated; N95.1 Menopausal and female climacteric states; Z79.899 Other long term (current) drug therapy; R35.0 Frequency of micturition
CPT/HCPCS: 36415; 80053; 80061; 81001; 82607; 82627; 82672; 83721; 84144; 84402; 84403; 84439; 84443; 84481; 85025; 86780; 87077; 87086; 87181

== ENCOUNTER 2023-10-01 09:13 | Outpatient (CLI) | payer MEDICARE, OTHER ==
--- NOTE | 2023-10-01 11:02 | CT Report ---
PROCEDURE: HEAD WO INDICATIONS: MEMORY LOSS TECHNIQUE: Noncontrast 4.5 mm thick angled axial sections acquired from the foramen magnum to the vertex. For r adiation dose reduction, the following was used: automated exposure control, adjustment of mA and/or kV according to patient size. COMPARISON: None. FINDINGS: Image quality: Excellent. CSF spaces: Basal cisterns are patent. No extra-axial fluid collections. Ventricles are normal in size and shape. Brain: No midline shift. No intracranial masses or hemorrhage. Mild age-related global volume loss and chronic microvascular ischemic changes. Intracranial atherosclerotic vascular calcifications. Gr ay-white matter interface is normal. Skull and face: Calvarium and visualized facial bones are intact, without suspicious lesions. Mild replacements. Sinuses: Air-fluid level in the partially visualized right maxillary sinus. Visualized sinuses and m astoids are otherwise clear. IMPRESSION: 1.No acute intracranial pathology. 2.Mild age-related global volume loss and chronic microvascular ischemic changes. 3.Right maxillary sinusitis. Reviewed by: Pavan Kendall MD on 10/01/2023 11:01 AM PST Approved by: Pavan Kendall MD on 10/01/2023 11:01 AM PST Station ID: [id number]
== END 2023-10-01 09:14 | disposition home or self-care (01) ==
LOC: DI 09:13
PROVIDERS: ATTEND Internal Medicine
DX: R41.3 Other amnesia (principal); G31.89 Other specified degenerative diseases of nervous system; I67.82 Cerebral ischemia; J32.0 Chronic maxillary sinusitis

== ENCOUNTER 2023-10-14 09:38 | Outpatient (CLI) | payer MEDICARE, OTHER ==
--- NOTE | 2023-10-15 10:41 | Mammography Report ---
BILATERAL DIGITAL SCREENING MAMMOGRAM 3D/2D: 10/14/2023 CLINICAL: Routine screening. Comparison is made to exams dated: 04/26/2020 mammogram and 06/10/2018 mammogram - [facility]. Both breasts are heterogeneously dense, which may obscure small masses (category c / 51-75% glandular tissue). There is a focal asymmetry in the left breast at 2 o'clock posterior depth. No other significant masses, calcifications, or other findings are seen in either breast. IMPRESSION: INCOMPLETE: NEEDS ADDITIONAL IMAGING EVALUATION The focal asymmetry in the left breast is indeterminate. Additional views with possible ultrasound a re recommended. Based on the Tyrer Cuzick model (a risk assessment model) the patients lifetime risk is 4.8% and her 10 year risk is 3.9%. According to the ACR, ACS, and NCCN guidelines, an annual breast MRI exam chi g with mammogram is recommended if the patients lifetime risk is 20% or greater. This exam was interpreted at Station ID: [id number]. NOTE: For mammograms, a report in lay terms will be sent to the patient. Approximately 15% of breast malignancies will not be visualized mammographically. In the management of a palpable breast mass, a negative mammogram must not discourage biopsy of a clinically suspicious lesion. Electronically Signed By: Joanne day/lucio:10/14/2023 17:01:21 ACR BI-RADS Category 0: Incomplete 3340F PARENCHYMAL PATTERN: (D) - The breast(s) demonstrate(s) heterogeneously dense fibroglandular pardony ma. BI-RADS CATEGORY: (0) - 0 Mammo and [place] [id number] Immediate follow-up LATERALITY: (B)
== END 2023-10-14 09:39 | disposition home or self-care (01) ==
LOC: DI 09:38
PROVIDERS: ATTEND Internal Medicine
DX: Z12.31 Encounter for screening mammogram for malignant neoplasm of breast (principal); R92.333 Mammographic heterogeneous density, bilateral breasts; R92.8 Other abnormal and inconclusive findings on diagnostic imaging of breast

== ENCOUNTER 2023-11-14 10:55 | Outpatient (CLI) | payer MEDICARE, OTHER ==
--- NOTE | 2023-11-15 12:06 | Ultrasound Report ---
LIMITED ULTRASOUND OF LEFT BREAST: 11/14/2023 CLINICAL: Patient returns today to evaluate a focal asymmetry in the left breast. Comparison is made to exams dated: 11/14/2023 mammogram, 10/14/2023 mammogram, 04/26/2020 mammogram, and 06/10/2018 mammogram - [facility]. Ultrasound of the left breast 2-3 o'clock region was performed. Whittaker scale images of the real-time examination were reviewed. No significant abnormalities were seen sonographically in the left breast. IMPRESSION: NEGATIVE There is no sonographic evidence of malignancy. There is no abnormality seen in the left breast to correspond with the mammography finding. Return to annual mammogram screening schedule is recommended. This exam was interpreted at Station ID: [id number]. Electronically Signed By: Ab Castellanos M.D. lc/:11/14/2023 11:44:10 Ultrasound BI-RADS: 1 Negative BI-RADS CATEGORY: (1) - 1 Mammogram [id number] return to screening LATERALITY: (B)
--- NOTE | 2023-11-15 12:06 | Mammography Report ---
UNILATERAL LEFT DIGITAL DIAGNOSTIC MAMMOGRAM 3D/2D WITH SPOT COMPRESSION: 11/14/2023 CLINICAL: Patient returns today to evaluate a focal asymmetry in the left breast. Comparison is made to exams dated: 04/26/2020 mammogram, 10/14/2023 mammogram, and 06/10/2018 mammogram - [facility]. The left breast is heterogeneously dense, which may obscure small masses (category c / 51-75% glandul ar tissue). There is a focal asymmetry in the left breast at 1 o'clock posterior depth. No other significant masses or calcifications are seen in the breast. IMPRESSION: INCOMPLETE: NEEDS ADDITIONAL IMAGING EVALUATION The focal asymmetry in the left breast is indeterminate. An ultrasound is recommended. Based on the Tyrer Cuzick model (a risk assessment model) the patient's lifetime risk is 4.8% and her 10 year risk is 3.9%. According to the ACR, ACS, and NCCN guidelines, an annual breast MRI exam chi g with mammogram is recommended if the patient's lifetime risk is 20% or greater. This exam was interpreted at Station ID: [id number]. NOTE: For mammograms, a report in lay terms will be sent to the patient. Approximately 15% of breast malignancies will not be visualized mammographically. In the management of a palpable breast mass, a negative mammogram must not discourage biopsy of a clinically suspicious lesion. Electronically Signed By: Ab Castellanos M.D. lc/:11/14/2023 11:41:56 ACR BI-RADS Category 0: Incomplete 3340F PARENCHYMAL PATTERN: (D) - The breast(s) demonstrate(s) heterogeneously dense fibroglandular alisia ro. BI-RADS CATEGORY: (0) - 0 Ultrasound [id number] Immediate follow-up LATERALITY: (B)
== END 2023-11-14 10:56 | disposition home or self-care (01) ==
LOC: DI 10:55
PROVIDERS: ATTEND Internal Medicine
DX: R92.8 Other abnormal and inconclusive findings on diagnostic imaging of breast (principal); R92.332 Mammographic heterogeneous density, left breast

== ENCOUNTER 2024-02-11 09:26 | Outpatient (CLI) | payer MEDICARE, OTHER ==
--- NOTE | 2024-02-11 09:30 | CARDIAC PROCEDURE NOTE ---
Stress Test Report Service Date: 02/11/24 Service Time: 09:30 Ordering Provider: Keyal Macdonald MD Indication for Test: Assess chest pain. Significant Medical History: Reny is referred for a treadmill stress echocardiogram today, to evaluate chest and left arm discomfort with intermittent heart palpitations. Her history dates back to October of this year, when she was traveling in [place] and touring at high altitude. She began to experience a moderately severe aching sensation on the outside of her upper left arm with some subsequent chest tightness, that was present intermittently for several days. She sought evaluation at an Emergency facility in [place] and was told that an EKG was normal. Shortly thereafter she returned to the where she felt better, though has still experienced intermittent flutters and minor chest discomfort, that is unpredictable in its onset and resolves without specific intervention. She has also been affected by significant right foot plantar fasciitis during this period, which has decreased her exercise level, though she does continue to walk periodically without chest pain. She reports having had a stress test many years ago that she understood to be normal and she underwent a diagnostic echocardiogram in 2018 with concern for possible mitral valve prolapse, with the study confirming only mitral valve thickening with trace mitral regurgitation, not confirming myxomatous mitral valve disease nor mitral valve prolapse. She does have a history of GERD and some intermittent abdominal issues that she feels are distinct from the symptoms for which she is being evaluated today. Cardiac Risk Factors: Negative for hypertension, hyperlipidemia (TChol 177, LDLc 88, HDLc 64, TG 54 in 09/28) and diabetes; she has some family members with non-coronary heart issues and smoked briefly over 50 years ago, so these are also non-attributable risks. Type of Stress Test: ETT with Echocardiography Procedure: -Exercise Treadmill Test- After signing informed consent, the patient underwent echo imaging at rest and then performed treadmill exercise using a Sheldon protocol. The patient exercised for 6 minutes 55 seconds and achieved a peak heart rate of 145 (99 percent predicted maximum heart rate for age), and an estimated workload of 8.5 METS. The test was terminated due to fatigue/shortness of breath. Resting heart rate: 84 Peak heart rate: 145 Normal response to exercise. Resting BP: 133/74 Peak BP: 195/72 Hypertensive BP response to exercise. Room air oxygen saturation during exercise varied between 97-98%. Rhythm during exercise: Sinus rhythm throughout, without apparent ectopy. Symptoms: She denied experiencing any chest or arm discomfort/pressure/pain. EKG at rest showed normal sinus rhythm with tiny R waves in V1 and V2 that are probably normal. EKG at peak stress showed J-point depression with upsloping ST segments, NOT clearly meeting diagnostic criteria for ischemia. In Recovery HR rapidly/normally decreased towards baseline level with slower resolution of BP. Echo imaging, performed at rest and with stress, will be reported separately. Amish Childs MD, was present throughout this treadmill stress study and supervised it in its entirety. Summary: 1) Exercise tolerance well above average for age and sex, as evidenced by BERNADETTE of -26%. 2) Normal resting EKG. 3) Adequate level of exercise was achieved on this treadmill stress test. 4) Borderline abnormal BP response to exercise. 5) No clear ischemic changes by EKG criteria were seen at peak stress. 6) Echo image interpretation reveals normal left ventricular size, wall thickness and systolic function, with appropriate hyperdynamic augmentation of all segments with exercise, indicating no evidence of prior infarct or inducible ischemia. There was no elevation of estimated pulmonary artery systolic pressure seen on screening study, with mitral valve leaflets appearing thickened, with trace regurgitation but no evidence of prolapse (all as seen on diagnostic echocardiogram here in 2019). See separate report for more details. Conclusions and Recommendations: 1) Overall these are very reassuring results with regard to significant epicardial coronary stenosis, with exercise time well above average for age, robust hemodynamic responses and no symptom or echocardiographic evidence of inducible ischemia. 2) With SBP achieved slightly >190 this would qualify as a hypertensive response and with J-point depression it is possible that she could have underlying endothelial dysfunction. In the absence of exertional chest pain there would not be an indication for treatment, but she was advised to remain active and monitor her blood pressure periodically (which she stated her RN daughter could assist with).
== END 2024-02-11 09:27 | disposition home or self-care (01) ==
LOC: DI 09:26
PROVIDERS: ATTEND Internal Medicine
DX: R07.9 Chest pain, unspecified (principal); M79.602 Pain in left arm; R00.2 Palpitations; Z87.891 Personal history of nicotine dependence
CPT/HCPCS: 93350